=== PATIENT | male | born 1995 | race Caucasian/White ===

== ENCOUNTER → 2016-09-15 | Outpatient (CLI) | payer OTHER | LOC: BMCIMAGING 15:32 | PROVIDERS: ATTEND Family Medicine | DX: M25.561 Pain in right knee (principal) ==

== ENCOUNTER 2017-08-06 02:46 | Observation (INO) | payer OTHER ==
[2017-08-06] MEDS ORDERED: NS 1,000 ML IV ONE (03:10)
[2017-08-06] MEDS ORDERED: fentaNYL 100 MCG/2 ML INJ IVP ONE (03:10)
[2017-08-06 03:26] LABS: PLATELET COUNT 173 10^3/uL (150-400)
[2017-08-06] MEDS ORDERED: FAMOTIDINE 20 MG/NACL 50 ML IV ONE (03:35)
--- NOTE | 2017-08-06 03:38 | EDPHY ---
H & P Stated Complaint: Abd pain Time Seen by Provider: 08/06/17 03:14 HPI/ROS: HPI The patient presents with abdominal pain which has been present since about 2: 00 p.m. Yesterday. It came on slowly and he has had intermittent pain throughout the week last week. The pain is moderate in severity. He tried taking Tums, motor him without any relief. He was unable to sleep so comes into the emergency department. It is diffuse and cramping in nature. REVIEW OF SYSTEMS Constitutional: No fever, no chills. Eyes: No discharge. ENT: No sore throat. Cardiovascular: No chest pain, no palpitations. Respiratory: No cough, no shortness of breath. Gastrointestinal: Positive for abdominal pain, no vomiting. Genitourinary: No hematuria. Musculoskeletal: No back pain. Skin: No rashes. Neurological: No headache. PMHx: History of H pylori gastritis Soc Hx: Lives with roommates PHYSICAL General Appearance: Alert, no distress Eyes: Pupils equal and round no pallor or injection ENT, Mouth: Mucous membranes moist Respiratory: There are no retractions, lungs are clear to auscultation Cardiovascular: Regular rate and rhythm Gastrointestinal: Abdomen is soft and tender in the lower quadrants without rebound or guarding, no masses, bowel sounds normal Neurological: A&O, moves all extremities Skin: Warm and dry, no rashes Musculoskeletal: Neck is supple non tender Extremities: symmetrical, full range of motion Psychiatric: Patient is oriented X 3, there is no agitation Source: Patient Exam Limitations: No limitations - Personal History Current Tetanus/Diphtheria Vaccine: Unsure Current Tetanus Diphtheria and Acellular Pertussis (TDAP): Unsure - Medical/Surgical History Hx Asthma: No Hx Chronic Respiratory Disease: No Hx Diabetes: No Hx Cardiac Disease: No Hx Renal Disease: No Hx Cirrhosis: No Hx Alcoholism: No Hx HIV/AIDS: No Hx Splenectomy or Spleen Trauma: No Other PMH: H. pylori - Social History Smoking Status: Never smoked Constitutional: Initial Vital Signs Temperature (C) 36.5 C 08/06/17 02:49 Heart Rate 75 08/06/17 02:49 Respiratory Rate 18 08/06/17 02:49 Blood Pressure 116/82 H 08/06/17 02:49 O2 Sat (%) 98 08/06/17 02:49 O2 Delivery Mode Room Air Allergies/Adverse Reactions: No Known Allergies Allergy (Unverified 08/06/17 02:52) Home Medications: Medication Instructions Recorded NK [No Known Home Meds] 08/06/17 Medical Decision Making - Diagnostics Imaging Results: Ultrasound right lower quadrant unable to visualize the appendix, discussed with Dr. Dean of Radiology. CT scan abdomen pelvis with IV contrast demonstrates dilated appendix at 13 mm without any inflammatory changes, fecalith is present, discussed with Dr. Dean of Radiology. Imaging: Discussed imaging studies w/ butcher supervisor Radiologist Differential Diagnosis: 22-year-old male, history of H pylori gastritis who presents with several hours of severe aching diffuse abdominal pain. On exam, he has normal vital signs. He has tenderness in his lower abdomen. He is feeling better after receiving fentanyl 50 mcg. Differential diagnosis includes appendicitis, colitis, gastritis, viral gastroenteritis, dehydration. In the emergency department, the patient was given fentanyl and IV fluids which caused immediate resolution of his pain. He had pain relief for about an hour and a half and then the pain returned and was quite severe. He received famotidine and Toradol, again with some improvement but not resolution of the pain. He was tenderness lower quadrants. He had an ultrasound performed to evaluate for appendicitis ex which was nondiagnostic. We discussed the risks and benefits of CT scan of the abdomen and given his ongoing pain, we have decided to proceed with it. This CT scan was performed and demonstrated a dilated appendix with an appendicolith the without any fat stranding. I consulted with Dr. Adilson Rodriguez of General surgery given his CT scan findings. He came to evaluate the patient and agrees this is likely appendicitis. The patient discussed being admitted to the hospital with a family member and would like to stay. I have ordered him a hospital bed. I have discussed the diagnosis and treatment plan with him. - Data Points Laboratory Results: Laboratory Results 08/06/17 03:00 08/06/17 03:00 08/06/17 08/06/17 03:00 03:00 WBC 10.45 10^3/uL H 10^3/uL (3.80-9.50) RBC 5.16 10^6/uL 10^6/uL (4.40-6.38) Hgb 16.5 g/dL g/dL (13.7-17.5) Hct 47.4 % % (40.0-51.0) MCV 91.9 fL fL (81.5-99.8) MCH 32.0 pg pg (27.9-34.1) MCHC 34.8 g/dL g/dL (32.4-36.7) RDW 12.3 % % (11.5-15.2) Plt Count 173 10^3/uL 10^3/uL (150-400) MPV 10.0 fL fL (8.7-11.7) Neut % (Auto) 69.1 % % (39.3-74.2) Lymph % (Auto) 18.9 % % (15.0-45.0) Swift % (Auto) 10.1 % % (4.5-13.0) Eos % (Auto) 1.4 % % (0.6-7.6) Baso % (Auto) 0.2 % L % (0.3-1.7) Nucleat RBC Rel Count 0.0 % % (0.0-0.2) Absolute Neuts (auto) 7.22 10^3/uL H 10^3/uL (1.70-6.50) Absolute Lymphs (auto) 1.97 10^3/uL 10^3/uL (1.00-3.00) Absolute Monos (auto) 1.06 10^3/uL H 10^3/uL (0.30-0.80) Absolute Eos (auto) 0.15 10^3/uL 10^3/uL (0.03-0.40) Absolute Basos (auto) 0.02 10^3/uL 10^3/uL (0.02-0.10) Absolute Nucleated RBC 0.00 10^3/uL 10^3/uL (0-0.01) Immature Gran % 0.3 % % (0.0-1.1) Immature Gran # 0.03 10^3/uL 10^3/uL (0.00-0.10) Sodium 142 mEq/L mEq/L (135-145) Potassium 3.5 mEq/L mEq/L (3.5-5.2) Chloride 103 mEq/L mEq/L (97-110) Carbon Dioxide 25 mEq/l mEq/l (22-31) Anion Gap 14 mEq/L mEq/L (8-16) BUN 14 mg/dL mg/dL (7-23) Creatinine 1.1 mg/dL mg/dL (0.7-1.3) Estimated GFR > 60 Glucose 110 mg/dL H mg/dL (70-100) Calcium 10.1 mg/dL mg/dL (8.5-10.4) Total Bilirubin 0.9 mg/dL mg/dL (0.1-1.4) Conjugated Bilirubin 0.2 mg/dL mg/dL (0.0-0.5) Unconjugated Bilirubin 0.7 mg/dL mg/dL (0.0-1.1) AST 25 IU/L IU/L (17-59) ALT 37 IU/L IU/L (21-72) Alkaline Phosphatase 72 IU/L IU/L (38-126) Total Protein 7.2 g/dL g/dL (6.3-8.2) Albumin 4.5 g/dL g/dL (3.5-5.0) Lipase 73 IU/L IU/L (23-300) Medications Given: Discontinued Medications Fentanyl (Sublimaze) 50 mcg IVP EDNOW ONE Stop: 08/06/17 03:11 Last Admin: 08/06/17 03:14 Dose: 50 mcg Sodium Chloride (Ns) 1,000 mls @ 0 mls/hr IV EDNOW ONE; Wide Open PRN Reason: Protocol Stop: 08/06/17 03:11 Last Admin: 08/06/17 03:14 Dose: 1,000 mls Famotidine/Sodium Chloride (Pepcid 20 Mg (Premix)) 50 mls @ 200 mls/hr IV EDNOW ONE Stop: 08/06/17 03:49 Last Admin: 08/06/17 03:53 Dose: 50 mls Ketorolac Tromethamine (Toradol) 15 mg IVP EDNOW ONE Stop: 08/06/17 04:48 Last Admin: 08/06/17 04:52 Dose: 15 mg Departure - Departure Disposition: [facility] Acute Clinical Impression: Acute appendicitis Qualifiers: Acute appendicitis type: unspecified acute appendicitis type Qualified Code(s) : K35.80 - Unspecified acute appendicitis Condition: Good Referrals: Jocelin Lopez PA [Primary Care Provider] - As per Instructions
[2017-08-06] MEDS ORDERED: KETOROLAC 15 MG/1 ML SDV IVP ONE (04:47)
[2017-08-06] MEDS ORDERED: IOPAMIDOL (ISOVUE-300) 100 ML BTL ONE (05:49)
[2017-08-06] MEDS ORDERED: ERTAPENEM 1 GM VIAL IV ONE (07:06)
[2017-08-06] MEDS ORDERED: ONDANSETRON 4 MG/2 ML VIAL IVP PRN (08:52)
[2017-08-06] MEDS ORDERED: HYDROmorphone HCL/NS 0.5 MG/ML SYR IVP PRN (08:52)
[2017-08-06] MEDS ORDERED: D5W 1/2 NS W/ 20 KCl/L 1,000 ML IV SCH (09:00)
[2017-08-06] MEDS: HYDROmorphONE/DILAUDID 2 MG/ML INJ IVP PRN ×2 (09:11→11:24)
--- NOTE | 2017-08-06 10:02 | GHP ---
[f rep st] PREOP HISTORY AND PHYSICAL DATE OF ADMISSION: 08/06/2017 CHIEF COMPLAINT: Abdominal pain. HISTORY OF PRESENT ILLNESS: This is an otherwise healthy 22-year-old male who presents to the emerge ncy department with a 12-hour history of abdominal pain. The patient states that prior to yesterday afternoon he was in his usual state of health, began to have progressive abdominal cramps, the worst he has ever had, which have been persistent, associated with nausea and no vomiting. It was difficul t for him to sleep, which prompted his presentation in the emergency department. He states that the pain was initially above his umbilicus and now is worst below his umbilicus, but is essentially every where. He denies having any fevers or chills. He has never had pain like this before. The pain is described as sharp, nonradiating, 8/10 in its worse intensity, and somewhat crampy. PAST MEDICAL HISTORY: None. PAST SURGICAL HISTORY: None. CURRENT MEDICATIONS: None. ALLERGIES: None. FAMILY HISTORY: Noncontributory. 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 REVIEW OF SYSTEMS: A full 10-point review performed. PHYSICAL EXAMINATION: VITAL SIGNS: Temp 36.5, blood pressure 116/82, heart rate 75, and he is 98% o n room air. GENERAL APPEARANCE: He is alert, in no distress. EYES: His pupils are equal, round, a nd reactive to light. HEENT: His hearing is normal. His dentition is normal. He has no oral mucos al ulcers, and he has no drainage from either ear. RESPIRATORY: He is clear. No rales or rhonchi. CV: He has a regular rate and rhythm. GI: His abdomen is soft. He is tender to deep palpation in ferior to the umbilicus. No rebound tenderness. No masses. NEUROLOGIC: He is alert and oriented. SKIN: Warm, dry, without rashes. MUSCULOSKELETAL: Moves all extremities. Normal joint range of m otion. PSYCH: He is alert and oriented x3. Thought process is linear. LABORATORY DATA: White blood cell count 10, no left shift. Chemistry is unremarkable. CT scan of t he abdomen and pelvis shows a dilated appendix, just over a centimeter, with an appendicolith. No ad jacent stranding or signs of perforation. ASSESSMENT AND PLAN: A 22-year-old male with acute onset abdominal pain, likely appendicitis. I maddie d the patient that CT scan does not definitively show appendicitis, but the appendix is dilated and t here is an appendicolith, that in combination with his progressive pain and location of the pain I do feel that this likely represents early appendicitis. My recommendation was for surgery. He talked it over with his family. He is in agreement. Risks, benefits, and alternatives are discussed. Main hanh n.p.o. He received IV antibiotics in the emergency department. Plan for operating room as time permits. /[id number]/MODL
[2017-08-06] MEDS ORDERED: LR 1,000 ML IV ONE (14:33)
[2017-08-06] MEDS ORDERED: fentaNYL 100 MCG/2 ML INJ ONE ×2 (15:34→16:04)
[2017-08-06] MEDS ORDERED: MIDAZOLAM 2 MG/2 ML VIAL ONE (15:34)
[2017-08-06] MEDS ORDERED: PROPOFOL 200 MG/20 ML VIAL ONE (15:35)
--- NOTE | 2017-08-06 15:39 | PDANEPAE ---
ANE Past Medical History - Pulmonary History Hx Oxygen in Use at Home: No Hx Sleep Apnea: No Sleep Apnea Screening Result - Last Documented: Negative - Endocrine History Hx Diabetes: No - Chronic Pain History Chronic Pain: No ANE Review of Systems Review of Systems: ANE Patient History - Allergies Allergies/Adverse Reactions: No Known Allergies Allergy (Verified 08/06/17 08:03) - Home Medications Home Medications: Ascorbic Acid [Vitamin C 500 mg (*)] 1,000 mg PO BID PRN 08/06/17 [Last Taken Unknown] Bismuth Subsalicylate [Pepto-Bismol oral liquid (*)] 15 ml PO Q3 PRN 08/06/17 [ Last Taken 08/05/17] Calcium Carbonate [Tums 500MG (*)] 500 mg PO TID PRN 08/06/17 [Last Taken ] Ibuprofen [Motrin (*)] 400 mg PO Q6H PRN 08/06/17 [Last Taken 08/05/17] - NPO status NPO Since - Liquids (Date): 08/06/17 NPO Since - Liquids (Time): 02:00 NPO Since - Solids (Date): 08/06/17 NPO Since - Solids (Time): 01:00 - Smoking Hx Smoking Status: Former smoker ANE Labs/Vital Signs - Labs Result Diagrams: 08/06/17 03:00 08/06/17 03:00 - Vital Signs Blood Pressure: 112/65 Heart Rate: 94 Respiratory Rate: 18 O2 Sat (%): 95 Height: 182.88 cm Weight: 68.039 kg ANE Physical Exam - Airway Neck exam: FROM Mallampati Score: Class 1 Mouth exam: normal dental/mouth exam - Pulmonary Pulmonary: no respiratory distress - Cardiovascular Cardiovascular: regular rate and rhythym - ASA Status ASA Status: I ANE Anesthesia Plan Anesthesia Plan: general endotracheal anesthesia
[2017-08-06] MEDS ORDERED: BUPIVACAINE 0.25% 30 ML SDV ONE (15:45)
[2017-08-06] MEDS ORDERED: HYDROCODONE/APAP 5/325 TAB PO PRN (16:38)
--- NOTE | 2017-08-06 16:40 | POSTOPPROG ---
Post Op Note Date of Operation: 08/06/17 Surgeon: Adilson Rodriguez Anesthesiologist: Bernard Anesthesia: GET(General Endotracheal) Pre-op Diagnosis: appendicitis Post-op Diagnosis: same Procedure: lap appy Findings: acute, non perforated Inf/Abcess present in the surg proc area at time of surgery?: No EBL: Minimal Specimen(s): appendix
[2017-08-06] MEDS ORDERED: ALBUTEROL 3 ML DEYVIAL IH PRN (16:51)
[2017-08-06] MEDS ORDERED: fentaNYL 100 MCG/2 ML INJ IVP PRN (16:51)
[2017-08-06] MEDS ORDERED: MEPERIDINE 25 MG/ML SYR IVP PRN (16:51)
[2017-08-06] MEDS ORDERED: NALOXONE HCL 0.4 MG/ML INJ IVP PRN (16:51)
--- NOTE | 2017-08-06 16:53 | POSTANESTH ---
Post Anesthetic Evaluation Cardiovascular Status: Similar to Pre-Op Cond Respiratory Status: Similar to Pre-op Cond. Level of Consciousness/Mental Status: Mildly Sleepy, Arousable Pain Control: Adequate, Prn Tx Ordered Nausea/Vomiting Control: Adequate, Prn Tx Ordered Complications Possibly Related to Anesthesia: None Noted
[2017-08-06] MEDS: IBUPROFEN 600 MG TAB PO SCH (22:43)
[2017-08-07 05:18] VITALS: TEMP 97.6
[2017-08-07] MEDS: IBUPROFEN 600 MG TAB PO SCH ×2 (05:29→13:36)
[2017-08-07 07:41] VITALS: RESP 16
[2017-08-07 11:49] VITALS: BP 117/49; PULSE 80; O2SAT 95
--- NOTE | 2017-08-07 12:33 | SOAPPROG ---
SOAP Progress Note Assessment/Plan: Assessment: POD # 1 s/p lap appy doing well dc home S: Flatus, no bm. Pain controlled on OTC meds O: BS present, cdi, appears well Plan: 08/07/17 12:32 Objective: Vital Signs Temp Pulse Resp BP Pulse Ox 36.4 C 80 16 117/49 L 95 08/07/17 11:46 08/07/17 11:46 08/07/17 11:46 08/07/17 11:46 08/07/17 11:46 08/06/17 08/07/17 08/08/17 05:59 05:59 05:59 Intake Total 1500 Output Total 1405 Balance 95 ICD10 Worksheet Patient Problems: Problems Problem Status Onset Acute appendicitis Acute
--- NOTE | 2017-08-07 15:24 | ASDISCHSUM ---
Discharge Information Plan Status:Home with No Needs Medically Cleared to Leave:08/06/2017 Discharge Date:08/07/2017 01:45 PM CM D/C Disposition:Home, Routine, Self-Care ADT D/C Disposition:Home, Routine, Self-Care Projected Discharge Date:08/07/2017 01:45 PM Transportation at D/C:Friend Discharge Delay Reason: Follow-Up Date:08/07/2017 01:45 PM Discharge Slot:2 - 12:01 pm - 18:00 pm Final Diagnosis:Abd pain, appendicitis, s/p appendectomy Placement Information Patient Contact Information Contact Name:KYUNG Relationship: Address: City: [facility] Phone: [facility] Code: Email: Financial Information Financial Class:HMO and PPO Plans Primary Plan Desc:H[employer] [place] [employer] Primary Plan Number:[id number] Secondary Plan Desc: Secondary Plan Number: Assessment Information [facility] CM Progress Note CM Note CM Note Notes: Pt admitted for 12+ hrs of abdominal pain, found to have appendicitis. POD 1 s/p appendectomy. 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 Spoke w/ MATEO De Paz, pt to discharge home independently today w/ no identified needs. CM avail for any further issues or concerns. Discharge Plan: Home independently Date Signed: 08/07/2017 03:23 PM Electronically Signed By:Letha Mills RN Intervention Information
--- NOTE | 2017-08-07 15:25 | ASMTLACE ---
JAGJIT Length of stay for Answers: 1 day current admission Acuity / Level of Answers: No Care: Did the patient have an inpatient admission? # of Emergency department Answers: 1-2 visits in the last 6 months Score: 2 Date Signed: 08/07/2017 03:24 PM Electronically Signed By:Letha Mills RN
--- NOTE | 2017-08-09 11:43 | GOP ---
[f rep st] OPERATIVE REPORT DATE OF OPERATION: 08/06/2017 SURGEON: Adilson Rodriguez MD INDIAN BLANKET WEAVER: None. ANESTHESIA: General endotracheal. ANESTHESIOLOGIST: Lacho Wagner MD PREOPERATIVE DIAGNOSIS: Acute appendicitis. POSTOPERATIVE DIAGNOSIS: Acute appendicitis. PROCEDURE PERFORMED: Laparoscopic appendectomy. FINDINGS: Acute indurated nonperforated appendicitis. SPECIMENS: Appendix. ESTIMATED BLOOD LOSS: 5 cc. DESCRIPTION OF PROCEDURE: The patient was greeted in the preoperative suite. Once again, risks, minoo efits, and alternatives were discussed. The patient was then brought back to the operative suite, pl aced on the OR table in a supine position. After all anesthesia machines including SCDs were on and functioning, a World Health Organization time-out was performed. After successful induction of gener al anesthesia, the patient's abdomen was widely prepped and draped in typical sterile fashion. I ent ered the abdomen via an infraumbilical cutdown through which the Veress needle was passed. I achieved pneumoperitoneum to 15 mmHg CO2 which was well tolerated by the patient. I then inserted the 12 mm V isiport into the abdomen and inspected the viscera and found no significant findings. I then inserte d 2 additional 5 mm trocars, 1 in the suprapubic, 1 in the left lower quadrant, both under direct vis ualization. I then traced the taeniae inferiorly and identified the base of the appendix which was r etrocecal. I did have to free it from some retroperitoneal attachments, which was done with electroc autery. After successfully freeing, I created a window at the base of the appendix and successfully amputated it from the cecum using a single fire Endo-RAUDEL blue load stapler. In the same fashion, jonathan g 2 white loads, successfully amputated the mesoappendix. The specimen was then placed in an EndoCat ch bag and removed. My staple lines were then inspected and noted to be intact and hemostatic. I th en irrigated the right lower, right upper and pelvis with sterile saline noting clear effluent in the suction canister. Before removing ports, I infiltrated local anesthesia into all the sites, I once a gain inspected my staple lines, which were in good condition. I then evacuated my pneumoperitoneum, removed my ports under direct visualization. I closed my inferior fascial defect with an 0 Vicryl sti tch and the skin with Monocryl over which Dermabond was placed. The patient was then extubated in th e operative suite and taken to the PACU in satisfactory condition. DRAINS: None. COUNTS: All counts were reported as correct x2. /[id number]/MODL
== END 2017-08-07 13:45 | disposition home or self-care (01) ==
LOC: INTOOBSV 07:03 → F3E 08:15
PROVIDERS: ADMIT Surgery; ATTEND Surgery
PROC: 0DTJ4ZZ Resection of Appendix, Percutaneous Endoscopic Approach (ICD-10-PCS; principal; 2017-08-06 15:30)
DX: K35.80 Unspecified acute appendicitis (principal); E86.9 Volume depletion, unspecified
CPT/HCPCS: 44970; 74177; 76705; 96361; 96365; 96375; 99285; G0378; J0171; J1170; J1335; J1885; J2250; J2270; J2405; J2704; J3010; Q9967